=== PATIENT | male | born 1945 | race Caucasian/White ===

== ENCOUNTER → 2017-10-30 02:56 | Outpatient (RCR) | payer MEDICARE, MEDICAID, SELFPAY ==
[2017-10-30] MEDS: Normal Saline Flush 10 ML SYR IVP (09:20)
[2017-10-30 09:40] LABS: Abs Immature Grans 0.01 k/cumm (0.0-0.09); Absolute Basophil Count 0.02 k/cumm (0.0-0.2); Absolute Eosinophil Count 0.14 k/cumm (0.0-0.7); Absolute Lymphocyte Count 1.02 k/cumm (1.2-3.4); Absolute Monocyte Count 0.77 k/cumm (0.11-0.7); Basophils % 0.4; Eosinophils % 2.6; HCT 37.1 % (40.0-50.0); HGB 12.5 g/dL (13.5-17.5); Immature Grans % 0.2; Mean Corp. HGB Concentration 33.7 g/dL (32.0-36.0); Mean Corpuscular Hemoglobin 31.5 pg (27.0-33.0); Mean Corpuscular Volume 93.5 fL (80-95); Mean Platelet Volume 9.7 fL (8.0-11.0); Monocytes % 14.4; Neutrophils % 63.4; Platelet Count 173 x1000/uL (130-400); RBC 3.97 m/cumm (4.50-6.00); RBC Distribution Width 12.5 % (11.8-14.1); White Blood Cell Count 5.36 k/cumm (4.4-10.8)
[2017-10-30 09:53] LABS: ALT 29 U/L (12-78); AST 25 U/L (15-37); Albumin 3.5 g/dL (3.4-5.0); Alkaline Phosphatase 113 U/L (46-116); Anion Gap 5.1 mmol/L (3-11); BUN 15 mg/dL (7-18); Bilirubin, Total 0.5 mg/dL (0.2-1.0); CO2 29.9 mmol/L (21.0-32.0); Calcium 8.7 mg/dL (8.5-10.1); Chloride 99 mmol/L (98-107); Glucose 269 mg/dL (70-100); Potassium 4.1 mmol/L (3.5-5.1); Sodium 134 mmol/L (136-145); Total Protein 7.3 g/dL (6.4-8.2)
== END ==
LOC: INF 02:56
PROVIDERS: PCP Internal Medicine; Visit Provider Internal Medicine Hematology & Oncology
DX: C15.5 Malignant neoplasm of lower third of esophagus (principal); Z45.2 Encounter for adjustment and management of vascular access device
CPT/HCPCS: 36591; 80053; 85025

== ENCOUNTER 2017-11-27 00:39 | Outpatient (RCR) | payer MEDICARE, MEDICAID, SELFPAY ==
[2017-11-04] MEDS: Normal Saline Flush 10 ML SYR IVP (07:05)
[2017-11-04 07:25] LABS: Abs Immature Grans 0.01 k/cumm (0.0-0.09); Absolute Basophil Count 0.02 k/cumm (0.0-0.2); Absolute Eosinophil Count 0.22 k/cumm (0.0-0.7); Absolute Lymphocyte Count 1.03 k/cumm (1.2-3.4); Absolute Monocyte Count 0.75 k/cumm (0.11-0.7); Absolute Neutrophil Count 3.08 k/cumm (1.2-6.7); Basophils % 0.4; Eosinophils % 4.3; HGB 12.5 g/dL (13.5-17.5); Immature Grans % 0.2; Lymphocytes % 20.2; Mean Corp. HGB Concentration 33.8 g/dL (32.0-36.0); Mean Corpuscular Hemoglobin 31.7 pg (27.0-33.0); Mean Corpuscular Volume 93.9 fL (80-95); Mean Platelet Volume 9.9 fL (8.0-11.0); Monocytes % 14.7; Neutrophils % 60.2; Platelet Count 162 x1000/uL (130-400); RBC 3.94 m/cumm (4.50-6.00); RBC Distribution Width 12.4 % (11.8-14.1); White Blood Cell Count 5.11 k/cumm (4.4-10.8)
[2017-11-04 07:43] LABS: ALT 30 U/L (12-78); AST 29 U/L (15-37); Albumin 3.6 g/dL (3.4-5.0); Alkaline Phosphatase 125 U/L (46-116); Anion Gap 3.8 mmol/L (3-11); BUN 17 mg/dL (7-18); Bilirubin, Total 0.5 mg/dL (0.2-1.0); CO2 30.2 mmol/L (21.0-32.0); CREATININE 0.86 mg/dL (0.70-1.30); Calcium 8.8 mg/dL (8.5-10.1); Chloride 99 mmol/L (98-107); Glucose 266 mg/dL (70-100); Sodium 133 mmol/L (136-145); Total Protein 7.6 g/dL (6.4-8.2)
[2017-11-06] MEDS: Heparin 500 UNITS/5 ML SYRINGE IV (08:21)
[2017-11-06] MEDS: Normal Saline Flush 10 ML SYR IVP (08:21)
[2017-11-06 08:39] LABS: Absolute Basophil Count 0.02 k/cumm (0.0-0.2); Absolute Eosinophil Count 0.12 k/cumm (0.0-0.7); Absolute Lymphocyte Count 0.45 k/cumm (1.2-3.4); Absolute Monocyte Count 0.44 k/cumm (0.11-0.7); Absolute Neutrophil Count 4.26 k/cumm (1.2-6.7); Basophils % 0.4; Eosinophils % 2.3; HCT 35.9 % (40.0-50.0); HGB 12.1 g/dL (13.5-17.5); Lymphocytes % 8.5; Mean Corp. HGB Concentration 33.7 g/dL (32.0-36.0); Mean Corpuscular Hemoglobin 31.5 pg (27.0-33.0); Mean Corpuscular Volume 93.5 fL (80-95); Mean Platelet Volume 10.2 fL (8.0-11.0); Monocytes % 8.3; Neutrophils % 80.5; Platelet Count 159 x1000/uL (130-400); RBC 3.84 m/cumm (4.50-6.00); RBC Distribution Width 12.5 % (11.8-14.1); White Blood Cell Count 5.29 k/cumm (4.4-10.8)
[2017-11-06 08:53] LABS: ALT 33 U/L (12-78); AST 32 U/L (15-37); Albumin 3.5 g/dL (3.4-5.0); Alkaline Phosphatase 121 U/L (46-116); Anion Gap 5.7 mmol/L (3-11); BUN 26 mg/dL (7-18); Bilirubin, Total 0.6 mg/dL (0.2-1.0); CO2 28.3 mmol/L (21.0-32.0); CREATININE 1.06 mg/dL (0.70-1.30); Calcium 8.4 mg/dL (8.5-10.1); Chloride 100 mmol/L (98-107); Glucose 312 mg/dL (70-100); Sodium 134 mmol/L (136-145); Total Protein 7.6 g/dL (6.4-8.2)
[2017-11-11] MEDS: Normal Saline Flush 10 ML SYR IVP (12:05)
[2017-11-11 12:39] LABS: Abs Immature Grans 0.02 k/cumm (0.0-0.09); Absolute Basophil Count 0.04 k/cumm (0.0-0.2); Absolute Eosinophil Count 0.14 k/cumm (0.0-0.7); Absolute Lymphocyte Count 0.38 k/cumm (1.2-3.4); Absolute Monocyte Count 0.34 k/cumm (0.11-0.7); Basophils % 1.1; Eosinophils % 3.9; HCT 33.9 % (40.0-50.0); HGB 11.6 g/dL (13.5-17.5); Immature Grans % 0.6; Lymphocytes % 10.5; Mean Corp. HGB Concentration 34.2 g/dL (32.0-36.0); Mean Corpuscular Hemoglobin 32.1 pg (27.0-33.0); Mean Corpuscular Volume 93.9 fL (80-95); Mean Platelet Volume 9.8 fL (8.0-11.0); Monocytes % 9.4; Neutrophils % 74.5; Platelet Count 172 x1000/uL (130-400); RBC 3.61 m/cumm (4.50-6.00); RBC Distribution Width 12.4 % (11.8-14.1); White Blood Cell Count 3.62 k/cumm (4.4-10.8)
[2017-11-11 12:59] LABS: ALT 39 U/L (12-78); AST 40 U/L (15-37); Albumin 3.4 g/dL (3.4-5.0); Alkaline Phosphatase 104 U/L (46-116); BUN 20 mg/dL (7-18); Bilirubin, Total 0.6 mg/dL (0.2-1.0); CREATININE 0.94 mg/dL (0.70-1.30); Calcium 8.4 mg/dL (8.5-10.1); Chloride 100 mmol/L (98-107); Glucose 222 mg/dL (70-100); Potassium 4.3 mmol/L (3.5-5.1); Sodium 134 mmol/L (136-145); Total Protein 7.2 g/dL (6.4-8.2)
[2017-11-13] MEDS: Normal Saline Flush 10 ML SYR IVP (08:10)
[2017-11-13 08:42] LABS: Abs Immature Grans 0.01 k/cumm (0.0-0.09); Absolute Basophil Count 0.01 k/cumm (0.0-0.2); Absolute Eosinophil Count 0.05 k/cumm (0.0-0.7); Absolute Lymphocyte Count 0.15 k/cumm (1.2-3.4); Absolute Monocyte Count 0.26 k/cumm (0.11-0.7); Absolute Neutrophil Count 3.67 k/cumm (1.2-6.7); Basophils % 0.2; Eosinophils % 1.2; HCT 34.4 % (40.0-50.0); HGB 11.6 g/dL (13.5-17.5); Immature Grans % 0.2; Lymphocytes % 3.6; Mean Corp. HGB Concentration 33.7 g/dL (32.0-36.0); Mean Corpuscular Hemoglobin 31.5 pg (27.0-33.0); Mean Corpuscular Volume 93.5 fL (80-95); Mean Platelet Volume 10.2 fL (8.0-11.0); Monocytes % 6.3; Neutrophils % 88.5; Platelet Count 166 x1000/uL (130-400); RBC 3.68 m/cumm (4.50-6.00); RBC Distribution Width 12.3 % (11.8-14.1); White Blood Cell Count 4.15 k/cumm (4.4-10.8)
[2017-11-13 08:58] LABS: ALT 38 U/L (12-78); AST 29 U/L (15-37); Albumin 3.6 g/dL (3.4-5.0); Alkaline Phosphatase 122 U/L (46-116); BUN 21 mg/dL (7-18); Bilirubin, Total 0.4 mg/dL (0.2-1.0); CREATININE 0.91 mg/dL (0.70-1.30); Calcium 8.8 mg/dL (8.5-10.1); Chloride 100 mmol/L (98-107); Glucose 353 mg/dL (70-100); Potassium 4.3 mmol/L (3.5-5.1); Sodium 137 mmol/L (136-145); Total Protein 7.6 g/dL (6.4-8.2)
[2017-11-20] MEDS: Normal Saline Flush 10 ML SYR IVP (08:05)
[2017-11-20 08:33] LABS: Abs Immature Grans 0.01 k/cumm (0.0-0.09); Absolute Basophil Count 0.01 k/cumm (0.0-0.2); Absolute Eosinophil Count 0.01 k/cumm (0.0-0.7); Absolute Lymphocyte Count 0.07 k/cumm (1.2-3.4); Absolute Monocyte Count 0.28 k/cumm (0.11-0.7); Absolute Neutrophil Count 2.92 k/cumm (1.2-6.7); Basophils % 0.3; Eosinophils % 0.3; HCT 33.9 % (40.0-50.0); HGB 11.5 g/dL (13.5-17.5); Immature Grans % 0.3; Lymphocytes % 2.1; Mean Corp. HGB Concentration 33.9 g/dL (32.0-36.0); Mean Corpuscular Hemoglobin 31.6 pg (27.0-33.0); Mean Corpuscular Volume 93.1 fL (80-95); Mean Platelet Volume 9.6 fL (8.0-11.0); Monocytes % 8.5; Neutrophils % 88.5; Platelet Count 153 x1000/uL (130-400); RBC 3.64 m/cumm (4.50-6.00); RBC Distribution Width 12.4 % (11.8-14.1)
[2017-11-20 08:44] LABS: ALT 41 U/L (12-78); AST 39 U/L (15-37); Albumin 3.5 g/dL (3.4-5.0); Alkaline Phosphatase 105 U/L (46-116); Anion Gap 6.7 mmol/L (3-11); BUN 19 mg/dL (7-18); Bilirubin, Total 0.4 mg/dL (0.2-1.0); CO2 27.3 mmol/L (21.0-32.0); CREATININE 0.86 mg/dL (0.70-1.30); Calcium 8.4 mg/dL (8.5-10.1); Chloride 100 mmol/L (98-107); Glucose 137 mg/dL (70-100); Sodium 134 mmol/L (136-145); Total Protein 7.1 g/dL (6.4-8.2)
[2017-11-27] MEDS: Normal Saline Flush 10 ML SYR IVP (08:20)
[2017-11-27 08:41] LABS: Abs Immature Grans 0.01 k/cumm (0.0-0.09); Absolute Basophil Count 0.02 k/cumm (0.0-0.2); Absolute Eosinophil Count 0.02 k/cumm (0.0-0.7); Absolute Lymphocyte Count 0.04 k/cumm (1.2-3.4); Absolute Monocyte Count 0.24 k/cumm (0.11-0.7); Absolute Neutrophil Count 1.66 k/cumm (1.2-6.7); HCT 31.8 % (40.0-50.0); HGB 10.6 g/dL (13.5-17.5); Immature Grans % 0.5; Mean Corp. HGB Concentration 33.3 g/dL (32.0-36.0); Mean Corpuscular Hemoglobin 31.3 pg (27.0-33.0); Mean Corpuscular Volume 93.8 fL (80-95); Mean Platelet Volume 9.5 fL (8.0-11.0); Monocytes % 12.1; Neutrophils % 83.4; Platelet Count 116 x1000/uL (130-400); RBC 3.39 m/cumm (4.50-6.00); RBC Distribution Width 12.6 % (11.8-14.1)
[2017-11-27 08:53] LABS: ALT 36 U/L (12-78); AST 32 U/L (15-37); Albumin 3.3 g/dL (3.4-5.0); Alkaline Phosphatase 108 U/L (46-116); Anion Gap 6.3 mmol/L (3-11); BUN 14 mg/dL (7-18); Bilirubin, Total 0.3 mg/dL (0.2-1.0); CO2 29.7 mmol/L (21.0-32.0); CREATININE 0.74 mg/dL (0.70-1.30); Calcium 8.3 mg/dL (8.5-10.1); Chloride 100 mmol/L (98-107); Glucose 162 mg/dL (70-100); Potassium 4.3 mmol/L (3.5-5.1); Sodium 136 mmol/L (136-145); Total Protein 6.7 g/dL (6.4-8.2)
[2017-11-27 09:16] LABS: White Blood Cell Count 1.99 k/cumm (4.4-10.8)
[2017-11-27 09:17] LABS: Diff Comment Diff Reviewed
== END 2017-11-29 23:59 | disposition home or self-care (01) ==
LOC: INF 00:39
PROVIDERS: PCP Internal Medicine; Visit Provider Internal Medicine Hematology & Oncology
DX: C15.5 Malignant neoplasm of lower third of esophagus (principal); Z45.2 Encounter for adjustment and management of vascular access device
CPT/HCPCS: 36591; 80053; 85025

== ENCOUNTER 2017-12-07 00:52 | Outpatient (RCR) | payer MEDICARE, MEDICAID, SELFPAY ==
[2017-12-02] MEDS: Normal Saline Flush 10 ML SYR IVP (10:05)
[2017-12-02 10:18] LABS: Absolute Basophil Count 0.01 k/cumm (0.0-0.2); Absolute Eosinophil Count 0.02 k/cumm (0.0-0.7); Absolute Lymphocyte Count 0.07 k/cumm (1.2-3.4); Absolute Monocyte Count 0.35 k/cumm (0.11-0.7); Absolute Neutrophil Count 1.34 k/cumm (1.2-6.7); Basophils % 0.6; Eosinophils % 1.1; HCT 32.4 % (40.0-50.0); HGB 10.9 g/dL (13.5-17.5); Lymphocytes % 3.9; Mean Corp. HGB Concentration 33.6 g/dL (32.0-36.0); Mean Corpuscular Hemoglobin 30.7 pg (27.0-33.0); Mean Corpuscular Volume 91.3 fL (80-95); Mean Platelet Volume 9.7 fL (8.0-11.0); Monocytes % 19.6; Neutrophils % 74.8; RBC 3.55 m/cumm (4.50-6.00); RBC Distribution Width 12.5 % (11.8-14.1)
[2017-12-02 10:30] LABS: ALT 50 U/L (12-78); AST 57 U/L (15-37); Albumin 3.4 g/dL (3.4-5.0); Alkaline Phosphatase 100 U/L (46-116); Anion Gap 7.4 mmol/L (3-11); BUN 18 mg/dL (7-18); Bilirubin, Total 0.7 mg/dL (0.2-1.0); CO2 28.6 mmol/L (21.0-32.0); CREATININE 0.96 mg/dL (0.70-1.30); Calcium 8.8 mg/dL (8.5-10.1); Chloride 97 mmol/L (98-107); Glucose 207 mg/dL (70-100); Potassium 4.3 mmol/L (3.5-5.1); Sodium 133 mmol/L (136-145); Total Protein 7.2 g/dL (6.4-8.2)
[2017-12-02 10:37] LABS: White Blood Cell Count 1.79 k/cumm (4.4-10.8)
[2017-12-02 10:56] LABS: Platelet Count 106 x1000/uL (130-400)
[2017-12-02 10:57] LABS: Anisocytosis 1+; Diff Comment Diff Reviewed
[2017-12-04] MEDS: Normal Saline Flush 10 ML SYR IVP (08:20)
[2017-12-04 08:40] LABS: Abs Immature Grans 0.01 k/cumm (0.0-0.09); Absolute Basophil Count 0.01 k/cumm (0.0-0.2); Absolute Eosinophil Count 0.01 k/cumm (0.0-0.7); Absolute Lymphocyte Count 0.09 k/cumm (1.2-3.4); Absolute Monocyte Count 0.48 k/cumm (0.11-0.7); Absolute Neutrophil Count 1.59 k/cumm (1.2-6.7); Basophils % 0.5; Eosinophils % 0.5; HCT 30.5 % (40.0-50.0); HGB 10.4 g/dL (13.5-17.5); Immature Grans % 0.5; Lymphocytes % 4.1; Mean Corp. HGB Concentration 34.1 g/dL (32.0-36.0); Mean Corpuscular Hemoglobin 31.5 pg (27.0-33.0); Mean Corpuscular Volume 92.4 fL (80-95); Mean Platelet Volume 9.3 fL (8.0-11.0); Monocytes % 21.9; Neutrophils % 72.5; Platelet Count 107 x1000/uL (130-400); RBC Distribution Width 12.8 % (11.8-14.1); White Blood Cell Count 2.19 k/cumm (4.4-10.8)
[2017-12-04 08:52] LABS: ALT 40 U/L (12-78); AST 31 U/L (15-37); Albumin 3.3 g/dL (3.4-5.0); Alkaline Phosphatase 107 U/L (46-116); Anion Gap 7.1 mmol/L (3-11); BUN 14 mg/dL (7-18); Bilirubin, Total 0.4 mg/dL (0.2-1.0); CO2 29.9 mmol/L (21.0-32.0); CREATININE 0.78 mg/dL (0.70-1.30); Calcium 8.7 mg/dL (8.5-10.1); Chloride 100 mmol/L (98-107); Glucose 144 mg/dL (70-100); Potassium 3.8 mmol/L (3.5-5.1); Sodium 137 mmol/L (136-145)
[2017-12-07] MEDS: Normal Saline Flush 10 ML SYR IVP (08:30)
[2017-12-07 08:51] LABS: Abs Immature Grans 0.01 k/cumm (0.0-0.09); Absolute Basophil Count 0.01 k/cumm (0.0-0.2); Absolute Eosinophil Count 0.02 k/cumm (0.0-0.7); Absolute Lymphocyte Count 0.23 k/cumm (1.2-3.4); Absolute Monocyte Count 0.67 k/cumm (0.11-0.7); Absolute Neutrophil Count 1.45 k/cumm (1.2-6.7); Basophils % 0.4; Eosinophils % 0.8; HCT 31.7 % (40.0-50.0); HGB 10.9 g/dL (13.5-17.5); Immature Grans % 0.4; Lymphocytes % 9.6; Mean Corp. HGB Concentration 34.4 g/dL (32.0-36.0); Mean Corpuscular Hemoglobin 31.7 pg (27.0-33.0); Mean Corpuscular Volume 92.2 fL (80-95); Mean Platelet Volume 9.2 fL (8.0-11.0); Neutrophils % 60.8; Platelet Count 119 x1000/uL (130-400); RBC 3.44 m/cumm (4.50-6.00); RBC Distribution Width 13.3 % (11.8-14.1); White Blood Cell Count 2.39 k/cumm (4.4-10.8)
[2017-12-07 09:04] LABS: ALT 34 U/L (12-78); AST 32 U/L (15-37); Albumin 3.2 g/dL (3.4-5.0); Alkaline Phosphatase 104 U/L (46-116); Anion Gap 9.9 mmol/L (3-11); BUN 11 mg/dL (7-18); Bilirubin, Total 0.5 mg/dL (0.2-1.0); CO2 28.1 mmol/L (21.0-32.0); CREATININE 0.82 mg/dL (0.70-1.30); Calcium 8.7 mg/dL (8.5-10.1); Chloride 96 mmol/L (98-107); Glucose 148 mg/dL (70-100); Potassium 3.7 mmol/L (3.5-5.1); Sodium 134 mmol/L (136-145)
[2017-12-07 09:16] LABS: Diff Comment Manual Differential; RBC Morphology Normal
== END 2017-12-30 23:59 | disposition home or self-care (01) ==
LOC: INF 00:52
PROVIDERS: PCP Internal Medicine; Visit Provider Internal Medicine Hematology & Oncology
DX: C15.5 Malignant neoplasm of lower third of esophagus (principal); Z45.2 Encounter for adjustment and management of vascular access device
CPT/HCPCS: 36591; 80053; 85025

== ENCOUNTER 2018-01-08 07:51 | Outpatient (RCR) | payer MEDICARE, MEDICAID, SELFPAY ==
[2018-01-08] MEDS: Normal Saline Flush 10 ML SYR IVP (08:20)
[2018-01-08] MEDS: Heparin 500 UNITS/5 ML SYRINGE IV (08:20)
[2018-01-08 08:41] LABS: Abs Immature Grans 0.01 k/cumm (0.0-0.09); Absolute Basophil Count 0.06 k/cumm (0.0-0.2); Absolute Eosinophil Count 0.42 k/cumm (0.0-0.7); Absolute Lymphocyte Count 1.04 k/cumm (1.2-3.4); Absolute Monocyte Count 1.01 k/cumm (0.11-0.7); Basophils % 1.4; Eosinophils % 9.7; HCT 32.9 % (40.0-50.0); HGB 10.8 g/dL (13.5-17.5); Immature Grans % 0.2; Lymphocytes % 24.1; Mean Corp. HGB Concentration 32.8 g/dL (32.0-36.0); Mean Corpuscular Volume 97.6 fL (80-95); Mean Platelet Volume 9.4 fL (8.0-11.0); Monocytes % 23.4; Neutrophils % 41.2; Platelet Count 166 x1000/uL (130-400); RBC 3.37 m/cumm (4.50-6.00); RBC Distribution Width 15.7 % (11.8-14.1); White Blood Cell Count 4.31 k/cumm (4.4-10.8)
[2018-01-08 08:48] LABS: Absolute Neutrophil Count 1.78 k/cumm (1.2-6.7)
[2018-01-08 09:02] LABS: ALT 24 U/L (12-78); AST 39 U/L (15-37); Albumin 3.1 g/dL (3.4-5.0); Alkaline Phosphatase 118 U/L (46-116); Anion Gap 7.7 mmol/L (3-11); BUN 14 mg/dL (7-18); Bilirubin, Total 0.5 mg/dL (0.2-1.0); CO2 29.3 mmol/L (21.0-32.0); CREATININE 0.89 mg/dL (0.70-1.30); Calcium 8.8 mg/dL (8.5-10.1); Chloride 97 mmol/L (98-107); Glucose 199 mg/dL (70-100); Potassium 4.1 mmol/L (3.5-5.1); Sodium 134 mmol/L (136-145); Total Protein 7.4 g/dL (6.4-8.2)
== END 2018-01-29 23:59 | disposition home or self-care (01) ==
LOC: INF 07:51
PROVIDERS: PCP Internal Medicine; Visit Provider Internal Medicine Hematology & Oncology
DX: C15.5 Malignant neoplasm of lower third of esophagus (principal); Z45.2 Encounter for adjustment and management of vascular access device
CPT/HCPCS: 36591; 80053; 85025

== ENCOUNTER 2018-03-09 01:48 | Outpatient (RCR) | payer MEDICARE, MEDICAID, SELFPAY ==
[2018-03-09] MEDS: Normal Saline Flush 10 ML SYR IVP (12:23)
[2018-03-09] MEDS: Heparin 500 UNITS/5 ML SYRINGE IV (12:23)
[2018-03-09 12:35] LABS: Abs Immature Grans 0.02 k/cumm (0.0-0.09); Absolute Basophil Count 0.02 k/cumm (0.0-0.2); Absolute Eosinophil Count 0.11 k/cumm (0.0-0.7); Absolute Lymphocyte Count 0.84 k/cumm (1.2-3.4); Absolute Monocyte Count 0.87 k/cumm (0.11-0.7); Absolute Neutrophil Count 2.64 k/cumm (1.2-6.7); Basophils % 0.4; Eosinophils % 2.4; HCT 40.4 % (40.0-50.0); HGB 13.3 g/dL (13.5-17.5); Immature Grans % 0.4; Lymphocytes % 18.7; Mean Corp. HGB Concentration 32.9 g/dL (32.0-36.0); Mean Corpuscular Hemoglobin 31.8 pg (27.0-33.0); Mean Corpuscular Volume 96.7 fL (80-95); Mean Platelet Volume 9.8 fL (8.0-11.0); Monocytes % 19.3; Neutrophils % 58.8; Platelet Count 169 x1000/uL (130-400); RBC 4.18 m/cumm (4.50-6.00); RBC Distribution Width 12.2 % (11.8-14.1)
[2018-03-09 13:11] LABS: ALT 30 U/L (12-78); AST 28 U/L (15-37); Albumin 3.6 g/dL (3.4-5.0); Alkaline Phosphatase 177 U/L (46-116); Anion Gap 5.8 mmol/L (3-11); BUN 19 mg/dL (7-18); Bilirubin, Total 0.3 mg/dL (0.2-1.0); CO2 30.2 mmol/L (21.0-32.0); CREATININE 1.12 mg/dL (0.70-1.30); Calcium 9.3 mg/dL (8.5-10.1); Chloride 98 mmol/L (98-107); Glucose 334 mg/dL (70-100); Potassium 4.4 mmol/L (3.5-5.1); Sodium 134 mmol/L (136-145); Total Protein 8.3 g/dL (6.4-8.2)
[2018-03-10 10:57] LABS: CEA 18.6 ng/ml
== END 2018-04-01 23:59 | disposition home or self-care (01) ==
LOC: INF 01:48
PROVIDERS: PCP Internal Medicine; Visit Provider Internal Medicine Hematology & Oncology
DX: C15.5 Malignant neoplasm of lower third of esophagus (principal); Z45.2 Encounter for adjustment and management of vascular access device
CPT/HCPCS: 36591; 80053; 82378; 85025

== ENCOUNTER 2018-06-11 01:06 | Outpatient (RCR) | payer MEDICARE, MEDICAID, SELFPAY | END 2018-06-29 23:59 | disposition home or self-care (01) | LOC: INF 01:06 | PROVIDERS: PCP Internal Medicine; Visit Provider Internal Medicine Hematology & Oncology | DX: R69 Illness, unspecified (principal) ==

== ENCOUNTER 2018-07-30 01:43 | Outpatient (RCR) | payer MEDICARE, MEDICAID, SELFPAY ==
[2018-07-16 09:50] LABS: Abs Immature Grans 0.01 k/cumm (0.0-0.09); Absolute Basophil Count 0.02 k/cumm (0.0-0.2); Absolute Eosinophil Count 0.13 k/cumm (0.0-0.7); Absolute Lymphocyte Count 0.85 k/cumm (1.2-3.4); Absolute Monocyte Count 0.69 k/cumm (0.11-0.7); Absolute Neutrophil Count 2.17 k/cumm (1.2-6.7); Basophils % 0.5; Eosinophils % 3.4; HCT 37.1 % (40.0-50.0); HGB 12.3 g/dL (13.5-17.5); Immature Grans % 0.3; Mean Corp. HGB Concentration 33.2 g/dL (32.0-36.0); Mean Corpuscular Hemoglobin 31.3 pg (27.0-33.0); Mean Corpuscular Volume 94.4 fL (80-95); Mean Platelet Volume 9.5 fL (8.0-11.0); Monocytes % 17.8; Platelet Count 179 x1000/uL (130-400); RBC 3.93 m/cumm (4.50-6.00); RBC Distribution Width 13.5 % (11.8-14.1); White Blood Cell Count 3.87 k/cumm (4.4-10.8)
[2018-07-16 10:02] LABS: ALT 38 U/L (12-78); AST 44 U/L (15-37); Albumin 3.4 g/dL (3.4-5.0); Alkaline Phosphatase 246 U/L (46-116); Anion Gap 8.8 mmol/L (3-11); BUN 14 mg/dL (7-18); Bilirubin, Total 0.4 mg/dL (0.2-1.0); CO2 28.2 mmol/L (21.0-32.0); CREATININE 0.92 mg/dL (0.70-1.30); Calcium 8.8 mg/dL (8.5-10.1); Chloride 97 mmol/L (98-107); Glucose 244 mg/dL (70-100); LDH 149 U/L (85-227); Potassium 4.1 mmol/L (3.5-5.1); Sodium 134 mmol/L (136-145); Total Protein 8.1 g/dL (6.4-8.2)
[2018-07-16] MEDS: Heparin 500 UNITS/5 ML SYRINGE IV (10:06)
[2018-07-16] MEDS: Normal Saline Flush 10 ML SYR IVP (10:06)
[2018-07-19 10:19] LABS: CEA 643.2 ng/ml
== END 2018-07-30 23:59 | disposition home or self-care (01) ==
LOC: INF 01:43
PROVIDERS: PCP Internal Medicine; Visit Provider Internal Medicine Hematology & Oncology
DX: C15.5 Malignant neoplasm of lower third of esophagus (principal); Z45.2 Encounter for adjustment and management of vascular access device
CPT/HCPCS: 36591; 80053; 82378; 83615; 85025

== ENCOUNTER 2018-08-17 09:30 | Outpatient (RCR) | payer MEDICARE, MEDICAID, SELFPAY ==
[2018-08-03] MEDS: Normal Saline Flush 10 ML SYR IVP (09:50)
[2018-08-03 10:14] LABS: Absolute Basophil Count 0.01 k/cumm (0.0-0.2); Absolute Lymphocyte Count 0.79 k/cumm (1.2-3.4); Absolute Monocyte Count 0.61 k/cumm (0.11-0.7); Basophils % 0.3; Eosinophils % 3.2; HGB 11.8 g/dL (13.5-17.5); Lymphocytes % 25.4; Mean Corp. HGB Concentration 33.7 g/dL (32.0-36.0); Mean Corpuscular Hemoglobin 31.6 pg (27.0-33.0); Mean Corpuscular Volume 93.8 fL (80-95); Mean Platelet Volume 9.6 fL (8.0-11.0); Monocytes % 19.6; Neutrophils % 51.5; Platelet Count 123 x1000/uL (130-400); RBC 3.73 m/cumm (4.50-6.00); RBC Distribution Width 13.5 % (11.8-14.1); White Blood Cell Count 3.11 k/cumm (4.4-10.8)
[2018-08-03 10:27] LABS: ALT 36 U/L (12-78); AST 31 U/L (15-37); Albumin 3.2 g/dL (3.4-5.0); Alkaline Phosphatase 276 U/L (46-116); BUN 17 mg/dL (7-18); Bilirubin, Total 0.4 mg/dL (0.2-1.0); CREATININE 0.97 mg/dL (0.70-1.30); Calcium 8.8 mg/dL (8.5-10.1); Chloride 99 mmol/L (98-107); Glucose 228 mg/dL (70-100); Potassium 4.2 mmol/L (3.5-5.1); Sodium 136 mmol/L (136-145); Total Protein 7.4 g/dL (6.4-8.2)
[2018-08-17] MEDS: Normal Saline Flush 10 ML SYR IVP (09:53)
[2018-08-17 10:07] LABS: Absolute Basophil Count 0.01 k/cumm (0.0-0.2); Absolute Eosinophil Count 0.05 k/cumm (0.0-0.7); Absolute Monocyte Count 0.72 k/cumm (0.11-0.7); Absolute Neutrophil Count 1.44 k/cumm (1.2-6.7); Basophils % 0.3; Eosinophils % 1.7; HCT 35.4 % (40.0-50.0); Lymphocytes % 26.5; Mean Corp. HGB Concentration 33.9 g/dL (32.0-36.0); Mean Corpuscular Hemoglobin 31.4 pg (27.0-33.0); Mean Corpuscular Volume 92.7 fL (80-95); Mean Platelet Volume 9.8 fL (8.0-11.0); Monocytes % 23.8; Neutrophils % 47.7; Platelet Count 113 x1000/uL (130-400); RBC 3.82 m/cumm (4.50-6.00); RBC Distribution Width 14.2 % (11.8-14.1); White Blood Cell Count 3.02 k/cumm (4.4-10.8)
[2018-08-17 10:21] LABS: ALT 36 U/L (12-78); AST 40 U/L (15-37); Albumin 3.3 g/dL (3.4-5.0); Alkaline Phosphatase 243 U/L (46-116); Anion Gap 12.4 mmol/L (3-11); BUN 18 mg/dL (7-18); Bilirubin, Total 0.4 mg/dL (0.2-1.0); CO2 25.6 mmol/L (21.0-32.0); CREATININE 1.07 mg/dL (0.70-1.30); Chloride 97 mmol/L (98-107); Glucose 197 mg/dL (70-100); Potassium 4.7 mmol/L (3.5-5.1); Sodium 135 mmol/L (136-145); Total Protein 7.7 g/dL (6.4-8.2)
[2018-08-17 11:01] LABS: LDH 166 U/L (85-227)
[2018-08-18 08:48] LABS: CEA 514.6 ng/ml
== END 2018-08-29 23:59 | disposition home or self-care (01) ==
LOC: INF 09:30
PROVIDERS: Registered Nurse Oncology; PCP Internal Medicine; Visit Provider Internal Medicine Hematology & Oncology
DX: C15.5 Malignant neoplasm of lower third of esophagus (principal); Z45.2 Encounter for adjustment and management of vascular access device
CPT/HCPCS: 36591; 80053; 82378; 83615; 85025

== ENCOUNTER 2018-09-20 01:18 | Outpatient (RCR) | payer MEDICARE, MEDICAID, SELFPAY ==
[2018-08-30 11:00] LABS: Abs Immature Grans 0.01 k/cumm (0.0-0.09); Absolute Basophil Count 0.02 k/cumm (0.0-0.2); Absolute Eosinophil Count 0.07 k/cumm (0.0-0.7); Absolute Lymphocyte Count 0.84 k/cumm (1.2-3.4); Absolute Monocyte Count 0.74 k/cumm (0.11-0.7); Absolute Neutrophil Count 1.11 k/cumm (1.2-6.7); Basophils % 0.7; Eosinophils % 2.5; HCT 34.8 % (40.0-50.0); HGB 11.7 g/dL (13.5-17.5); Immature Grans % 0.4; Lymphocytes % 30.1; Mean Corp. HGB Concentration 33.6 g/dL (32.0-36.0); Mean Corpuscular Hemoglobin 31.9 pg (27.0-33.0); Mean Corpuscular Volume 94.8 fL (80-95); Mean Platelet Volume 9.8 fL (8.0-11.0); Monocytes % 26.5; Neutrophils % 39.8; Platelet Count 103 x1000/uL (130-400); RBC 3.67 m/cumm (4.50-6.00); RBC Distribution Width 15.4 % (11.8-14.1); White Blood Cell Count 2.79 k/cumm (4.4-10.8)
[2018-08-30] MEDS: Normal Saline Flush 10 ML SYR IVP (11:03)
[2018-08-30 11:19] LABS: ALT 30 U/L (12-78); AST 29 U/L (15-37); Albumin 3.2 g/dL (3.4-5.0); Alkaline Phosphatase 214 U/L (46-116); Anion Gap 8.9 mmol/L (3-11); BUN 18 mg/dL (7-18); Bilirubin, Total 0.4 mg/dL (0.2-1.0); CO2 28.1 mmol/L (21.0-32.0); CREATININE 1.11 mg/dL (0.70-1.30); Chloride 103 mmol/L (98-107); Glucose 261 mg/dL (70-100); Potassium 4.4 mmol/L (3.5-5.1); Sodium 140 mmol/L (136-145); Total Protein 7.6 g/dL (6.4-8.2)
[2018-08-30 11:22] LABS: Anisocytosis 1+; Diff Comment Diff Reviewed; Polychromasia Present
[2018-08-31 09:38] LABS: CEA 308.9 ng/ml
[2018-09-06] MEDS: Normal Saline Flush 10 ML SYR IVP (10:36)
[2018-09-06 10:51] LABS: Abs Immature Grans 0.02 k/cumm (0.0-0.09); Absolute Basophil Count 0.02 k/cumm (0.0-0.2); Absolute Eosinophil Count 0.08 k/cumm (0.0-0.7); Absolute Lymphocyte Count 0.72 k/cumm (1.2-3.4); Absolute Monocyte Count 0.92 k/cumm (0.11-0.7); Absolute Neutrophil Count 1.56 k/cumm (1.2-6.7); Basophils % 0.6; Eosinophils % 2.4; HCT 33.8 % (40.0-50.0); HGB 11.5 g/dL (13.5-17.5); Immature Grans % 0.6; Lymphocytes % 21.7; Mean Corpuscular Hemoglobin 32.7 pg (27.0-33.0); Mean Platelet Volume 9.9 fL (8.0-11.0); Monocytes % 27.7; Platelet Count 172 x1000/uL (130-400); RBC 3.52 m/cumm (4.50-6.00); RBC Distribution Width 16.7 % (11.8-14.1); White Blood Cell Count 3.32 k/cumm (4.4-10.8)
[2018-09-06 11:03] LABS: ALT 23 U/L (12-78); AST 31 U/L (15-37); Albumin 3.2 g/dL (3.4-5.0); Alkaline Phosphatase 209 U/L (46-116); Anion Gap 9.7 mmol/L (3-11); BUN 17 mg/dL (7-18); Bilirubin, Total 0.5 mg/dL (0.2-1.0); CO2 27.3 mmol/L (21.0-32.0); CREATININE 0.97 mg/dL (0.70-1.30); Calcium 8.9 mg/dL (8.5-10.1); Chloride 100 mmol/L (98-107); Glucose 184 mg/dL (70-100); Potassium 3.8 mmol/L (3.5-5.1); Sodium 137 mmol/L (136-145); Total Protein 7.7 g/dL (6.4-8.2)
[2018-09-20] MEDS: Heparin 500 UNITS/5 ML SYRINGE IV (10:20)
[2018-09-20] MEDS: Normal Saline Flush 10 ML SYR IVP (10:20)
[2018-09-20 10:26] LABS: HCT 33.3 % (40.0-50.0); HGB 11.3 g/dL (13.5-17.5); Mean Corp. HGB Concentration 33.9 g/dL (32.0-36.0); Mean Corpuscular Volume 97.4 fL (80-95); Mean Platelet Volume 9.9 fL (8.0-11.0); Platelet Count 104 x1000/uL (130-400); RBC 3.42 m/cumm (4.50-6.00); White Blood Cell Count 3.23 k/cumm (4.4-10.8)
[2018-09-20 10:41] LABS: ALT 30 U/L (12-78); AST 30 U/L (15-37); Albumin 2.9 g/dL (3.4-5.0); Alkaline Phosphatase 212 U/L (46-116); Anion Gap 7.4 mmol/L (3-11); BUN 13 mg/dL (7-18); Bilirubin, Total 0.4 mg/dL (0.2-1.0); CO2 28.6 mmol/L (21.0-32.0); CREATININE 0.78 mg/dL (0.70-1.30); Calcium 8.9 mg/dL (8.5-10.1); Chloride 101 mmol/L (98-107); Glucose 202 mg/dL (70-100); Sodium 137 mmol/L (136-145); Total Protein 7.3 g/dL (6.4-8.2)
[2018-09-20 11:07] LABS: Absolute Neutrophil Count 1.55 k/cumm (1.2-6.7)
[2018-09-20 11:09] LABS: Absolute Lymphocyte Count 0.78 k/cumm (1.2-3.4); Absolute Monocyte Count 0.84 k/cumm (0.11-0.7); Atypical Lymphocytes % 1
[2018-09-20 11:10] LABS: Absolute Eosinophil Count 0.06 k/cumm (0.0-0.7)
[2018-09-20 11:11] LABS: Anisocytosis 1+; Diff Comment Manual Differential; Polychromasia Present
[2018-09-21 09:35] LABS: CEA 74.1 ng/ml
== END 2018-09-29 23:59 | disposition home or self-care (01) ==
LOC: INF 01:18
PROVIDERS: PCP Internal Medicine; Visit Provider Internal Medicine Hematology & Oncology
DX: C15.9 Malignant neoplasm of esophagus, unspecified (principal); Z45.2 Encounter for adjustment and management of vascular access device
CPT/HCPCS: 36591; 80053; 82378; 85025

== ENCOUNTER 2018-10-18 01:38 | Outpatient (RCR) | payer MEDICARE, MEDICAID, SELFPAY ==
[2018-10-18] MEDS: Normal Saline Flush 10 ML SYR IVP (09:40)
[2018-10-18 10:03] LABS: Abs Immature Grans 0.01 k/cumm (0.0-0.09); Absolute Basophil Count 0.01 k/cumm (0.0-0.2); Absolute Eosinophil Count 0.08 k/cumm (0.0-0.7); Absolute Lymphocyte Count 0.87 k/cumm (1.2-3.4); Absolute Monocyte Count 1.01 k/cumm (0.11-0.7); Absolute Neutrophil Count 3.68 k/cumm (1.2-6.7); Basophils % 0.2; Eosinophils % 1.4; HCT 32.2 % (40.0-50.0); HGB 10.7 g/dL (13.5-17.5); Immature Grans % 0.2; Lymphocytes % 15.4; Mean Corp. HGB Concentration 33.2 g/dL (32.0-36.0); Mean Corpuscular Hemoglobin 33.5 pg (27.0-33.0); Mean Corpuscular Volume 100.9 fL (80-95); Mean Platelet Volume 9.5 fL (8.0-11.0); Monocytes % 17.8; Platelet Count 168 x1000/uL (130-400); RBC 3.19 m/cumm (4.50-6.00); White Blood Cell Count 5.66 k/cumm (4.4-10.8)
[2018-10-18 10:13] LABS: ALT 20 U/L (12-78); AST 21 U/L (15-37); Alkaline Phosphatase 164 U/L (46-116); Anion Gap 8.4 mmol/L (3-11); BUN 17 mg/dL (7-18); Bilirubin, Total 0.7 mg/dL (0.2-1.0); CO2 28.6 mmol/L (21.0-32.0); CREATININE 0.83 mg/dL (0.70-1.30); Calcium 8.6 mg/dL (8.5-10.1); Chloride 101 mmol/L (98-107); Glucose 193 mg/dL (70-100); Potassium 3.6 mmol/L (3.5-5.1); Sodium 138 mmol/L (136-145); Total Protein 7.7 g/dL (6.4-8.2)
[2018-10-19 09:20] LABS: CEA 38.9 ng/ml
== END 2018-10-30 23:59 | disposition home or self-care (01) ==
LOC: INF 01:38
PROVIDERS: PCP Internal Medicine; Visit Provider Internal Medicine Hematology & Oncology
DX: C15.9 Malignant neoplasm of esophagus, unspecified (principal); Z45.2 Encounter for adjustment and management of vascular access device
CPT/HCPCS: 36591; 80053; 82378; 85025

== ENCOUNTER 2018-11-29 01:41 | Outpatient (RCR) | payer MEDICARE, MEDICAID, SELFPAY ==
[2018-11-02] MEDS: Normal Saline Flush 10 ML SYR IVP (09:32)
[2018-11-02 09:47] LABS: Absolute Basophil Count 0.02 k/cumm (0.0-0.2); Absolute Eosinophil Count 0.08 k/cumm (0.0-0.7); Absolute Lymphocyte Count 0.72 k/cumm (1.2-3.4); Absolute Monocyte Count 0.86 k/cumm (0.11-0.7); Absolute Neutrophil Count 1.52 k/cumm (1.2-6.7); Basophils % 0.6; Eosinophils % 2.5; HCT 32.5 % (40.0-50.0); HGB 10.7 g/dL (13.5-17.5); Lymphocytes % 22.5; Mean Corp. HGB Concentration 32.9 g/dL (32.0-36.0); Mean Corpuscular Hemoglobin 32.9 pg (27.0-33.0); Mean Platelet Volume 9.8 fL (8.0-11.0); Monocytes % 26.9; Neutrophils % 47.5; Platelet Count 148 x1000/uL (130-400); RBC 3.25 m/cumm (4.50-6.00); RBC Distribution Width 14.1 % (11.8-14.1)
[2018-11-02 10:11] LABS: ALT 21 U/L (16-63); AST 25 U/L (15-37); Albumin 2.9 g/dL (3.4-5.0); Alkaline Phosphatase 193 U/L (46-116); BUN 12 mg/dL (7-18); Bilirubin, Total 0.4 mg/dL (0.2-1.0); CREATININE 0.83 mg/dL (0.70-1.30); Calcium 8.8 mg/dL (8.5-10.1); Chloride 100 mmol/L (98-107); Glucose 240 mg/dL (70-100); Potassium 3.8 mmol/L (3.5-5.1); Sodium 136 mmol/L (136-145); Total Protein 7.6 g/dL (6.4-8.2)
[2018-11-29] MEDS: Normal Saline Flush 10 ML SYR IVP (08:21)
[2018-11-29 08:40] LABS: Abs Immature Grans 0.01 k/cumm (0.0-0.09); Absolute Basophil Count 0.03 k/cumm (0.0-0.2); Absolute Eosinophil Count 0.07 k/cumm (0.0-0.7); Absolute Lymphocyte Count 0.69 k/cumm (1.2-3.4); Absolute Monocyte Count 0.95 k/cumm (0.11-0.7); Basophils % 0.6; Eosinophils % 1.5; HCT 33.1 % (40.0-50.0); HGB 10.9 g/dL (13.5-17.5); Immature Grans % 0.2; Lymphocytes % 14.8; Mean Corp. HGB Concentration 32.9 g/dL (32.0-36.0); Mean Corpuscular Hemoglobin 33.2 pg (27.0-33.0); Mean Corpuscular Volume 100.9 fL (80-95); Monocytes % 20.4; Neutrophils % 62.5; Platelet Count 172 x1000/uL (130-400); RBC 3.28 m/cumm (4.50-6.00); RBC Distribution Width 14.1 % (11.8-14.1); White Blood Cell Count 4.65 k/cumm (4.4-10.8)
[2018-11-29 08:58] LABS: ALT 27 U/L (16-63); AST 35 U/L (15-37); Alkaline Phosphatase 208 U/L (46-116); Anion Gap 6.8 mmol/L (3-11); BUN 13 mg/dL (7-18); Bilirubin, Total 0.4 mg/dL (0.2-1.0); CO2 29.2 mmol/L (21.0-32.0); Calcium 8.9 mg/dL (8.5-10.1); Chloride 100 mmol/L (98-107); Glucose 195 mg/dL (70-100); Sodium 136 mmol/L (136-145); Total Protein 7.7 g/dL (6.4-8.2)
[2018-12-01 16:35] LABS: CEA 42.3 ng/ml
== END 2018-11-29 23:59 | disposition home or self-care (01) ==
LOC: INF 01:41
PROVIDERS: PCP Internal Medicine; Visit Provider Internal Medicine Hematology & Oncology
DX: C15.9 Malignant neoplasm of esophagus, unspecified (principal); Z45.2 Encounter for adjustment and management of vascular access device
CPT/HCPCS: 36415; 36591; 80053; 82378; 85025

== ENCOUNTER 2018-12-27 02:02 | Outpatient (RCR) | payer MEDICARE, MEDICAID, SELFPAY | END 2018-12-30 23:59 | disposition home or self-care (01) | LOC: INF 02:02 | PROVIDERS: PCP Internal Medicine; Visit Provider Internal Medicine Hematology & Oncology | DX: R69 Illness, unspecified (principal) ==

== ENCOUNTER 2019-01-20 02:40 | Outpatient (RCR) | payer MEDICARE, MEDICAID, SELFPAY ==
[2019-01-07 08:15] LABS: Absolute Basophil Count 0.02 k/cumm (0.0-0.2); Absolute Eosinophil Count 0.09 k/cumm (0.0-0.7); Absolute Lymphocyte Count 0.85 k/cumm (1.2-3.4); Absolute Monocyte Count 0.71 k/cumm (0.11-0.7); Absolute Neutrophil Count 2.01 k/cumm (1.2-6.7); Basophils % 0.5; Eosinophils % 2.4; HCT 37.2 % (40.0-50.0); HGB 12.2 g/dL (13.5-17.5); Lymphocytes % 23.1; Mean Corp. HGB Concentration 32.8 g/dL (32.0-36.0); Mean Corpuscular Volume 97.6 fL (80-95); Mean Platelet Volume 9.1 fL (8.0-11.0); Monocytes % 19.3; Neutrophils % 54.7; Platelet Count 199 x1000/uL (130-400); RBC 3.81 m/cumm (4.50-6.00); RBC Distribution Width 14.5 % (11.8-14.1); White Blood Cell Count 3.68 k/cumm (4.4-10.8)
[2019-01-07] MEDS: Heparin 500 UNITS/5 ML SYRINGE (08:33)
[2019-01-07] MEDS: Normal Saline Flush 10 ML SYR IVP (08:34)
[2019-01-07 08:52] LABS: ALT 30 U/L (16-63); AST 32 U/L (15-37); Albumin 3.3 g/dL (3.4-5.0); Alkaline Phosphatase 231 U/L (46-116); Anion Gap 7.8 mmol/L (3-11); BUN 18 mg/dL (7-18); Bilirubin, Total 0.5 mg/dL (0.2-1.0); CO2 28.2 mmol/L (21.0-32.0); CREATININE 0.89 mg/dL (0.70-1.30); Calcium 9.2 mg/dL (8.5-10.1); Chloride 100 mmol/L (98-107); Glucose 259 mg/dL (70-100); Sodium 136 mmol/L (136-145); Total Protein 8.1 g/dL (6.4-8.2)
[2019-01-11 08:09] LABS: CEA 43.1 ng/mL (See Note)
[2019-01-20] MEDS: Heparin 500 UNITS/5 ML SYRINGE IV (12:27)
[2019-01-20] MEDS: Normal Saline Flush 10 ML SYR IVP (12:27)
[2019-01-20 12:29] LABS: Abs Immature Grans 0.01 k/cumm (0.0-0.09); Absolute Basophil Count 0.02 k/cumm (0.0-0.2); Absolute Eosinophil Count 0.07 k/cumm (0.0-0.7); Absolute Lymphocyte Count 0.91 k/cumm (1.2-3.4); Absolute Monocyte Count 0.58 k/cumm (0.11-0.7); Absolute Neutrophil Count 1.73 k/cumm (1.2-6.7); Basophils % 0.6; Eosinophils % 2.1; HGB 11.3 g/dL (13.5-17.5); Immature Grans % 0.3; Lymphocytes % 27.4; Mean Corp. HGB Concentration 32.3 g/dL (32.0-36.0); Mean Corpuscular Hemoglobin 31.5 pg (27.0-33.0); Mean Corpuscular Volume 97.5 fL (80-95); Mean Platelet Volume 8.8 fL (8.0-11.0); Monocytes % 17.5; Neutrophils % 52.1; Platelet Count 156 x1000/uL (130-400); RBC 3.59 m/cumm (4.50-6.00); RBC Distribution Width 14.6 % (11.8-14.1); White Blood Cell Count 3.32 k/cumm (4.4-10.8)
[2019-01-20 12:47] LABS: ALT 30 U/L (16-63); AST 28 U/L (15-37); Albumin 3.1 g/dL (3.4-5.0); Alkaline Phosphatase 236 U/L (46-116); Anion Gap 5.6 mmol/L (3-11); BUN 14 mg/dL (7-18); Bilirubin, Total 0.4 mg/dL (0.2-1.0); CO2 29.4 mmol/L (21.0-32.0); CREATININE 0.87 mg/dL (0.70-1.30); Calcium 8.6 mg/dL (8.5-10.1); Chloride 100 mmol/L (98-107); Glucose 305 mg/dL (74-106); Potassium 4.1 mmol/L (3.5-5.1); Sodium 135 mmol/L (136-145); Total Protein 7.6 g/dL (6.4-8.2)
[2019-01-21 09:36] LABS: CEA 53.1 ng/mL (See Note)
== END 2019-01-29 23:59 | disposition home or self-care (01) ==
LOC: INF 02:40
PROVIDERS: PCP Internal Medicine; Visit Provider Internal Medicine Hematology & Oncology
DX: C15.9 Malignant neoplasm of esophagus, unspecified (principal); Z45.2 Encounter for adjustment and management of vascular access device
CPT/HCPCS: 36591; 80053; 82378; 85025

== ENCOUNTER 2019-02-22 03:42 | Outpatient (RCR) | payer MEDICARE, MEDICAID, SELFPAY | END 2019-03-01 23:59 | disposition home or self-care (01) | LOC: INF 03:42 | PROVIDERS: PCP Internal Medicine; Visit Provider Internal Medicine Hematology & Oncology | DX: R69 Illness, unspecified (principal) ==

== ENCOUNTER 2019-04-01 03:41 | Outpatient (RCR) | payer MEDICARE, MEDICAID, SELFPAY ==
[2019-03-18] MEDS: Heparin 500 UNITS/5 ML SYRINGE (14:30)
[2019-03-18] MEDS: Normal Saline Flush 10 ML SYR 30 ML IVP (14:31)
[2019-03-18 14:43] LABS: Absolute Basophil Count 0.04 k/cumm (0.0-0.2); Absolute Eosinophil Count 0.17 k/cumm (0.0-0.7); Absolute Lymphocyte Count 1.33 k/cumm (1.2-3.4); Absolute Monocyte Count 0.99 k/cumm (0.11-0.7); Absolute Neutrophil Count 3.13 k/cumm (1.2-6.7); Basophils % 0.7; HCT 37.6 % (40.0-50.0); HGB 12.4 g/dL (13.5-17.5); Lymphocytes % 23.5; Mean Corpuscular Hemoglobin 31.7 pg (27.0-33.0); Mean Corpuscular Volume 96.2 fL (80-95); Mean Platelet Volume 9.3 fL (8.0-11.0); Monocytes % 17.5; Neutrophils % 55.3; Platelet Count 186 x1000/uL (130-400); RBC 3.91 m/cumm (4.50-6.00); RBC Distribution Width 13.7 % (11.8-14.1); White Blood Cell Count 5.66 k/cumm (4.4-10.8)
[2019-03-18 15:04] LABS: ALT 33 U/L (16-63); AST 40 U/L (15-37); Albumin 3.3 g/dL (3.4-5.0); Alkaline Phosphatase 310 U/L (46-116); Anion Gap 6.9 mmol/L (3-11); BUN 18 mg/dL (7-18); Bilirubin, Total 0.4 mg/dL (0.2-1.0); CO2 29.1 mmol/L (21.0-32.0); CREATININE 0.87 mg/dL (0.70-1.30); Calcium 8.9 mg/dL (8.5-10.1); Chloride 101 mmol/L (98-107); Glucose 206 mg/dL (74-106); Potassium 4.2 mmol/L (3.5-5.1); Sodium 137 mmol/L (136-145); Total Protein 7.8 g/dL (6.4-8.2)
[2019-03-22 12:32] LABS: CEA 156.8 ng/mL (See Note)
[2019-04-01] MEDS: Normal Saline Flush 10 ML SYR IVP (08:15)
[2019-04-01] MEDS: Heparin 500 UNITS/5 ML SYRINGE IV (08:15)
[2019-04-01 08:36] LABS: Abs Immature Grans 0.01 k/cumm (0.0-0.09); Absolute Basophil Count 0.02 k/cumm (0.0-0.2); Absolute Eosinophil Count 0.07 k/cumm (0.0-0.7); Absolute Monocyte Count 0.63 k/cumm (0.11-0.7); Absolute Neutrophil Count 2.36 k/cumm (1.2-6.7); Basophils % 0.5; Eosinophils % 1.8; HGB 12.2 g/dL (13.5-17.5); Immature Grans % 0.3 %; Lymphocytes % 20.6; Mean Corpuscular Hemoglobin 31.4 pg (27.0-33.0); Mean Corpuscular Volume 95.4 fL (80-95); Monocytes % 16.2; Neutrophils % 60.6; Platelet Count 186 x1000/uL (130-400); RBC 3.88 m/cumm (4.50-6.00); RBC Distribution Width 13.5 % (11.8-14.1); White Blood Cell Count 3.89 k/cumm (4.4-10.8)
[2019-04-01 08:55] LABS: ALT 25 U/L (16-63); AST 30 U/L (15-37); Albumin 3.3 g/dL (3.4-5.0); Alkaline Phosphatase 280 U/L (46-116); Anion Gap 7.8 mmol/L (3-11); BUN 17 mg/dL (7-18); Bilirubin, Total 0.6 mg/dL (0.2-1.0); CO2 28.2 mmol/L (21.0-32.0); CREATININE 0.99 mg/dL (0.70-1.30); Calcium 8.5 mg/dL (8.5-10.1); Chloride 99 mmol/L (98-107); Glucose 290 mg/dL (74-106); Potassium 4.2 mmol/L (3.5-5.1); Sodium 135 mmol/L (136-145); Total Protein 7.4 g/dL (6.4-8.2)
[2019-04-04 13:01] LABS: CEA 174.4 ng/mL (See Note)
== END 2019-04-01 23:59 | disposition home or self-care (01) ==
LOC: INF 03:41
PROVIDERS: PCP Internal Medicine; Visit Provider Internal Medicine Hematology & Oncology
DX: C15.9 Malignant neoplasm of esophagus, unspecified (principal); Z45.2 Encounter for adjustment and management of vascular access device
CPT/HCPCS: 36591; 80053; 82378; 85025

== ENCOUNTER 2019-04-18 03:18 | Outpatient (RCR) | payer MEDICARE, MEDICAID, SELFPAY ==
[2019-04-18] MEDS: Normal Saline Flush 10 ML SYR IVP (10:21)
[2019-04-18 10:34] LABS: Absolute Basophil Count 0.04 k/cumm (0.0-0.2); Absolute Eosinophil Count 0.07 k/cumm (0.0-0.7); Absolute Lymphocyte Count 0.86 k/cumm (1.2-3.4); Absolute Monocyte Count 0.71 k/cumm (0.11-0.7); Absolute Neutrophil Count 2.04 k/cumm (1.2-6.7); Basophils % 1.1; Eosinophils % 1.9; HCT 35.2 % (40.0-50.0); HGB 11.6 g/dL (13.5-17.5); Lymphocytes % 23.1; Mean Corpuscular Hemoglobin 31.9 pg (27.0-33.0); Mean Corpuscular Volume 96.7 fL (80-95); Monocytes % 19.1; Neutrophils % 54.8; Platelet Count 156 x1000/uL (130-400); RBC 3.64 m/cumm (4.50-6.00); RBC Distribution Width 14.6 % (11.8-14.1); White Blood Cell Count 3.72 k/cumm (4.4-10.8)
[2019-04-18 10:53] LABS: ALT 30 U/L (16-63); AST 32 U/L (15-37); Albumin 3.1 g/dL (3.4-5.0); Alkaline Phosphatase 266 U/L (46-116); Anion Gap 7.4 mmol/L (3-11); BUN 14 mg/dL (7-18); Bilirubin, Total 0.5 mg/dL (0.2-1.0); CO2 29.6 mmol/L (21.0-32.0); CREATININE 1.11 mg/dL (0.70-1.30); Calcium 8.3 mg/dL (8.5-10.1); Chloride 102 mmol/L (98-107); Glucose 335 mg/dL (74-106); Potassium 3.8 mmol/L (3.5-5.1); Sodium 139 mmol/L (136-145); Total Protein 7.1 g/dL (6.4-8.2)
== END 2019-04-30 23:59 | disposition home or self-care (01) ==
LOC: INF 03:18
PROVIDERS: PCP Internal Medicine; Visit Provider Internal Medicine Hematology & Oncology
DX: C15.9 Malignant neoplasm of esophagus, unspecified (principal); Z45.2 Encounter for adjustment and management of vascular access device
CPT/HCPCS: 36591; 80053; 82378; 85025

== ENCOUNTER 2019-05-31 04:03 | Outpatient (RCR) | payer MEDICARE, MEDICAID, SELFPAY ==
[2019-05-02 07:43] LABS: Abs Immature Grans 0.03 k/cumm (0.0-0.09); Absolute Eosinophil Count 0.02 k/cumm (0.0-0.7); Absolute Lymphocyte Count 0.55 k/cumm (1.2-3.4); Absolute Monocyte Count 0.48 k/cumm (0.11-0.7); Absolute Neutrophil Count 4.45 k/cumm (1.2-6.7); Eosinophils % 0.4; HCT 37.2 % (40.0-50.0); HGB 12.7 g/dL (13.5-17.5); Immature Grans % 0.5 %; Lymphocytes % 9.9; Mean Corp. HGB Concentration 34.1 g/dL (32.0-36.0); Mean Corpuscular Hemoglobin 32.4 pg (27.0-33.0); Mean Corpuscular Volume 94.9 fL (80-95); Mean Platelet Volume 9.3 fL (8.0-11.0); Monocytes % 8.7; Neutrophils % 80.5; Platelet Count 224 x1000/uL (130-400); RBC 3.92 m/cumm (4.50-6.00); RBC Distribution Width 14.7 % (11.8-14.1); White Blood Cell Count 5.53 k/cumm (4.4-10.8)
[2019-05-02 07:59] LABS: ALT 83 U/L (16-63); AST 70 U/L (15-37); Albumin 3.1 g/dL (3.4-5.0); Alkaline Phosphatase 311 U/L (46-116); Anion Gap 6.4 mmol/L (3-11); BUN 27 mg/dL (7-18); Bilirubin, Total 0.7 mg/dL (0.2-1.0); CO2 29.6 mmol/L (21.0-32.0); CREATININE 1.05 mg/dL (0.70-1.30); Calcium 8.5 mg/dL (8.5-10.1); Chloride 96 mmol/L (98-107); Glucose 432 mg/dL (74-106); Potassium 4.2 mmol/L (3.5-5.1); Sodium 132 mmol/L (136-145)
[2019-05-02] MEDS: Normal Saline Flush 10 ML SYR IVP (08:13)
[2019-05-03 13:08] LABS: CEA 171.8 ng/mL (See Note)
[2019-05-16 09:44] LABS: Abs Immature Grans 0.01 k/cumm (0.0-0.09); Absolute Basophil Count 0.01 k/cumm (0.0-0.2); Absolute Eosinophil Count 0.05 k/cumm (0.0-0.7); Absolute Lymphocyte Count 0.87 k/cumm (1.2-3.4); Absolute Monocyte Count 0.84 k/cumm (0.11-0.7); Absolute Neutrophil Count 3.42 k/cumm (1.2-6.7); Basophils % 0.2; HCT 37.2 % (40.0-50.0); HGB 12.4 g/dL (13.5-17.5); Immature Grans % 0.2 %; Lymphocytes % 16.7; Mean Corp. HGB Concentration 33.3 g/dL (32.0-36.0); Mean Corpuscular Volume 95.9 fL (80-95); Mean Platelet Volume 9.6 fL (8.0-11.0); Monocytes % 16.2; Neutrophils % 65.7; Platelet Count 124 x1000/uL (130-400); RBC 3.88 m/cumm (4.50-6.00); RBC Distribution Width 14.9 % (11.8-14.1)
[2019-05-16] MEDS: Normal Saline Flush 10 ML SYR IVP (09:53)
[2019-05-16 10:11] LABS: ALT 56 U/L (16-63); AST 45 U/L (15-37); Alkaline Phosphatase 311 U/L (46-116); Anion Gap 5.2 mmol/L (3-11); BUN 16 mg/dL (7-18); Bilirubin, Total 0.6 mg/dL (0.2-1.0); CO2 28.8 mmol/L (21.0-32.0); CREATININE 0.92 mg/dL (0.70-1.30); Calcium 8.2 mg/dL (8.5-10.1); Chloride 99 mmol/L (98-107); Glucose 285 mg/dL (74-106); Potassium 4.2 mmol/L (3.5-5.1); Sodium 133 mmol/L (136-145)
[2019-05-31 10:16] LABS: Abs Immature Grans 0.01 k/cumm (0.0-0.09); Absolute Basophil Count 0.01 k/cumm (0.0-0.2); Absolute Eosinophil Count 0.07 k/cumm (0.0-0.7); Absolute Lymphocyte Count 1.02 k/cumm (1.2-3.4); Absolute Neutrophil Count 2.78 k/cumm (1.2-6.7); Basophils % 0.2; Eosinophils % 1.5; HCT 36.1 % (40.0-50.0); HGB 12.2 g/dL (13.5-17.5); Immature Grans % 0.2 %; Lymphocytes % 22.2; Mean Corp. HGB Concentration 33.8 g/dL (32.0-36.0); Mean Corpuscular Hemoglobin 32.4 pg (27.0-33.0); Mean Platelet Volume 9.1 fL (8.0-11.0); Monocytes % 15.3; Neutrophils % 60.6; Platelet Count 201 x1000/uL (130-400); RBC 3.76 m/cumm (4.50-6.00); RBC Distribution Width 15.7 % (11.8-14.1); White Blood Cell Count 4.59 k/cumm (4.4-10.8)
[2019-05-31] MEDS: Normal Saline Flush 10 ML SYR IVP (10:37)
[2019-05-31 10:56] LABS: ALT 37 U/L (16-63); AST 35 U/L (15-37); Albumin 3.1 g/dL (3.4-5.0); Alkaline Phosphatase 260 U/L (46-116); Anion Gap 8.1 mmol/L (3-11); BUN 22 mg/dL (7-18); Bilirubin, Total 0.5 mg/dL (0.2-1.0); CO2 27.9 mmol/L (21.0-32.0); CREATININE 1.11 mg/dL (0.70-1.30); Calcium 8.9 mg/dL (8.5-10.1); Chloride 102 mmol/L (98-107); Glucose 157 mg/dL (74-106); Potassium 4.1 mmol/L (3.5-5.1); Sodium 138 mmol/L (136-145); Total Protein 7.2 g/dL (6.4-8.2)
== END 2019-05-31 23:59 | disposition home or self-care (01) ==
LOC: INF 04:03
PROVIDERS: PCP Internal Medicine; Visit Provider Internal Medicine Hematology & Oncology
DX: C15.9 Malignant neoplasm of esophagus, unspecified (principal); Z45.2 Encounter for adjustment and management of vascular access device
CPT/HCPCS: 36591; 80053; 82378; 85025

== ENCOUNTER 2019-06-27 00:40 | Outpatient (RCR) | payer MEDICARE, MEDICAID, SELFPAY ==
[2019-06-13 09:32] LABS: Abs Immature Grans 0.01 k/cumm (0.0-0.09); Absolute Basophil Count 0.02 k/cumm (0.0-0.2); Absolute Eosinophil Count 0.07 k/cumm (0.0-0.7); Absolute Lymphocyte Count 1.01 k/cumm (1.2-3.4); Absolute Monocyte Count 0.85 k/cumm (0.11-0.7); Absolute Neutrophil Count 2.56 k/cumm (1.2-6.7); Basophils % 0.4; Eosinophils % 1.5; HCT 35.8 % (40.0-50.0); HGB 12.2 g/dL (13.5-17.5); Immature Grans % 0.2 %; Lymphocytes % 22.3; Mean Corp. HGB Concentration 34.1 g/dL (32.0-36.0); Mean Corpuscular Volume 96.8 fL (80-95); Mean Platelet Volume 9.5 fL (8.0-11.0); Monocytes % 18.8; Neutrophils % 56.8; Platelet Count 161 x1000/uL (130-400); RBC Distribution Width 16.1 % (11.8-14.1); White Blood Cell Count 4.52 k/cumm (4.4-10.8)
[2019-06-13] MEDS: Normal Saline Flush 10 ML SYR IVP (09:37)
[2019-06-13 09:52] LABS: ALT 32 U/L (16-63); AST 30 U/L (15-37); Albumin 3.3 g/dL (3.4-5.0); Alkaline Phosphatase 305 U/L (46-116); Anion Gap 5.2 mmol/L (3-11); BUN 18 mg/dL (7-18); Bilirubin, Total 0.6 mg/dL (0.2-1.0); CO2 28.8 mmol/L (21.0-32.0); CREATININE 1.08 mg/dL (0.70-1.30); Calcium 8.8 mg/dL (8.5-10.1); Chloride 98 mmol/L (98-107); Glucose 429 mg/dL (74-106); Potassium 4.4 mmol/L (3.5-5.1); Sodium 132 mmol/L (136-145); Total Protein 7.5 g/dL (6.4-8.2)
[2019-06-15 16:14] LABS: CEA 149.9 ng/mL (See Note)
[2019-06-27] MEDS: Normal Saline Flush 10 ML SYR IVP (09:39)
[2019-06-27 09:44] LABS: Abs Immature Grans 0.01 k/cumm (0.0-0.09); Absolute Basophil Count 0.04 k/cumm (0.0-0.2); Absolute Eosinophil Count 0.14 k/cumm (0.0-0.7); Absolute Lymphocyte Count 1.14 k/cumm (1.2-3.4); Absolute Monocyte Count 1.07 k/cumm (0.11-0.7); Basophils % 0.7; Eosinophils % 2.4; HCT 35.8 % (40.0-50.0); HGB 12.1 g/dL (13.5-17.5); Immature Grans % 0.2 %; Lymphocytes % 19.3; Mean Corp. HGB Concentration 33.8 g/dL (32.0-36.0); Mean Corpuscular Hemoglobin 33.1 pg (27.0-33.0); Mean Corpuscular Volume 97.8 fL (80-95); Mean Platelet Volume 9.7 fL (8.0-11.0); Monocytes % 18.1; Neutrophils % 59.3; Platelet Count 186 x1000/uL (130-400); RBC 3.66 m/cumm (4.50-6.00); RBC Distribution Width 16.5 % (11.8-14.1)
[2019-06-27 10:04] LABS: ALT 31 U/L (16-63); AST 31 U/L (15-37); Albumin 3.3 g/dL (3.4-5.0); Alkaline Phosphatase 240 U/L (46-116); Anion Gap 8.2 mmol/L (3-11); BUN 19 mg/dL (7-18); Bilirubin, Total 0.8 mg/dL (0.2-1.0); CO2 27.8 mmol/L (21.0-32.0); CREATININE 0.94 mg/dL (0.70-1.30); Calcium 8.8 mg/dL (8.5-10.1); Chloride 99 mmol/L (98-107); Glucose 197 mg/dL (74-106); Sodium 135 mmol/L (136-145); Total Protein 7.3 g/dL (6.4-8.2)
[2019-06-28 11:10] LABS: CEA 168.5 ng/mL (See Note)
== END 2019-06-30 23:59 | disposition home or self-care (01) ==
LOC: INF 00:40
PROVIDERS: PCP Internal Medicine; Visit Provider Internal Medicine Hematology & Oncology
DX: C15.9 Malignant neoplasm of esophagus, unspecified (principal); Z45.2 Encounter for adjustment and management of vascular access device
CPT/HCPCS: 36591; 80053; 82378; 85025

== ENCOUNTER 2019-07-27 01:42 | Outpatient (RCR) | payer MEDICARE, MEDICAID, SELFPAY ==
[2019-07-07] MEDS: Heparin 500 UNITS/5 ML SYRINGE IV (09:15)
[2019-07-07] MEDS: Normal Saline Flush 10 ML SYR IVP (09:15)
[2019-07-07 10:05] LABS: Abs Immature Grans 0.02 k/cumm (0.0-0.09); Absolute Basophil Count 0.02 k/cumm (0.0-0.2); Absolute Lymphocyte Count 0.92 k/cumm (1.2-3.4); Absolute Monocyte Count 1.09 k/cumm (0.11-0.7); Absolute Neutrophil Count 2.35 k/cumm (1.2-6.7); Basophils % 0.4; Eosinophils % 2.2; HCT 36.1 % (40.0-50.0); HGB 12.2 g/dL (13.5-17.5); Immature Grans % 0.4 %; Lymphocytes % 20.4; Mean Corp. HGB Concentration 33.8 g/dL (32.0-36.0); Mean Corpuscular Hemoglobin 33.3 pg (27.0-33.0); Mean Corpuscular Volume 98.6 fL (80-95); Mean Platelet Volume 9.4 fL (8.0-11.0); Monocytes % 24.2; Neutrophils % 52.4; Platelet Count 209 x1000/uL (130-400); RBC 3.66 m/cumm (4.50-6.00); RBC Distribution Width 16.6 % (11.8-14.1)
[2019-07-07 10:20] LABS: ALT 40 U/L (16-63); AST 36 U/L (15-37); Albumin 3.3 g/dL (3.4-5.0); Alkaline Phosphatase 271 U/L (46-116); Anion Gap 8.1 mmol/L (3-11); BUN 15 mg/dL (7-18); Bilirubin, Total 0.7 mg/dL (0.2-1.0); CO2 27.9 mmol/L (21.0-32.0); CREATININE 0.94 mg/dL (0.70-1.30); Calcium 9.3 mg/dL (8.5-10.1); Chloride 97 mmol/L (98-107); Glucose 352 mg/dL (74-106); Potassium 4.1 mmol/L (3.5-5.1); Sodium 133 mmol/L (136-145); Total Protein 7.5 g/dL (6.4-8.2)
[2019-07-08 10:47] LABS: CEA 182.7 ng/mL (See Note)
[2019-07-27] MEDS: Normal Saline Flush 10 ML SYR IVP (08:11)
[2019-07-27 08:14] LABS: Abs Immature Grans 0.02 k/cumm (0.0-0.09); Absolute Basophil Count 0.07 k/cumm (0.0-0.2); Absolute Eosinophil Count 0.52 k/cumm (0.0-0.7); Absolute Lymphocyte Count 1.48 k/cumm (1.2-3.4); Absolute Neutrophil Count 3.93 k/cumm (1.2-6.7); Basophils % 0.9; Eosinophils % 6.7; HCT 38.6 % (40.0-50.0); HGB 13.3 g/dL (13.5-17.5); Immature Grans % 0.3 %; Lymphocytes % 19.2; Mean Corp. HGB Concentration 34.5 g/dL (32.0-36.0); Mean Corpuscular Hemoglobin 33.5 pg (27.0-33.0); Mean Corpuscular Volume 97.2 fL (80-95); Mean Platelet Volume 9.4 fL (8.0-11.0); Neutrophils % 50.9; Platelet Count 220 x1000/uL (130-400); RBC 3.97 m/cumm (4.50-6.00); RBC Distribution Width 14.5 % (11.8-14.1); White Blood Cell Count 7.72 k/cumm (4.4-10.8)
[2019-07-27 08:28] LABS: ALT 29 U/L (16-63); AST 39 U/L (15-37); Alkaline Phosphatase 260 U/L (46-116); Anion Gap 8.2 mmol/L (3-11); BUN 14 mg/dL (7-18); CO2 26.8 mmol/L (21.0-32.0); CREATININE 1.19 mg/dL (0.70-1.30); Calcium 8.9 mg/dL (8.5-10.1); Chloride 93 mmol/L (98-107); Estimated GFR 59.92 (mL/min/1.73m2); Glucose 326 mg/dL (74-106); LDH 176 U/L (85-227); Potassium 4.2 mmol/L (3.5-5.1); Sodium 128 mmol/L (136-145); Total Protein 7.6 g/dL (6.4-8.2)
[2019-07-27 08:35] LABS: Diff Comment Agrees w/ Instrument; Polychromasia Present
[2019-07-28 13:05] LABS: CEA 165.9 ng/mL (See Note)
== END 2019-07-31 23:59 | disposition home or self-care (01) ==
LOC: INF 01:42
PROVIDERS: PCP Internal Medicine; Visit Provider Internal Medicine Hematology & Oncology
DX: C15.5 Malignant neoplasm of lower third of esophagus (principal); Z45.2 Encounter for adjustment and management of vascular access device
CPT/HCPCS: 36591; 80053; 86850; 86900; 86901; 82378; 83615; 85025

== ENCOUNTER 2019-08-26 04:26 | Outpatient (RCR) | payer MEDICARE, MEDICAID, SELFPAY ==
[2019-08-26] MEDS: Normal Saline Flush 10 ML SYR IVP (09:03)
[2019-08-26] MEDS: Heparin 500 UNITS/5 ML SYRINGE IV (09:03)
[2019-08-26 09:06] LABS: Abs Immature Grans 0.02 k/cumm (0.0-0.09); Absolute Basophil Count 0.03 k/cumm (0.0-0.2); Absolute Eosinophil Count 0.21 k/cumm (0.0-0.7); Absolute Lymphocyte Count 0.81 k/cumm (1.2-3.4); Absolute Monocyte Count 1.21 k/cumm (0.11-0.7); Basophils % 0.5; Eosinophils % 3.4; HGB 12.2 g/dL (13.5-17.5); Immature Grans % 0.3 %; Lymphocytes % 13.1; Mean Corpuscular Hemoglobin 32.6 pg (27.0-33.0); Mean Corpuscular Volume 98.9 fL (80-95); Mean Platelet Volume 9.7 fL (8.0-11.0); Monocytes % 19.6; Neutrophils % 63.1; Platelet Count 212 x1000/uL (130-400); RBC 3.74 m/cumm (4.50-6.00); RBC Distribution Width 15.6 % (11.8-14.1); White Blood Cell Count 6.18 k/cumm (4.4-10.8)
[2019-08-26 09:30] LABS: ALT 43 U/L (16-63); AST 47 U/L (15-37); Albumin 2.8 g/dL (3.4-5.0); Alkaline Phosphatase 357 U/L (46-116); Anion Gap 8.2 mmol/L (3-11); BUN 21 mg/dL (7-18); Bilirubin, Total 0.8 mg/dL (0.2-1.0); CO2 25.8 mmol/L (21.0-32.0); CREATININE 1.13 mg/dL (0.70-1.30); Calcium 8.7 mg/dL (8.5-10.1); Chloride 98 mmol/L (98-107); Glucose 272 mg/dL (74-106); Potassium 4.3 mmol/L (3.5-5.1); Sodium 132 mmol/L (136-145); Total Protein 7.5 g/dL (6.4-8.2)
[2019-08-29 11:11] LABS: CEA 228.4 ng/mL (See Note)
== END 2019-08-30 23:59 | disposition home or self-care (01) ==
LOC: INF 04:26
PROVIDERS: PCP Internal Medicine; Visit Provider Internal Medicine Hematology & Oncology
DX: C15.5 Malignant neoplasm of lower third of esophagus (principal); Z45.2 Encounter for adjustment and management of vascular access device
CPT/HCPCS: 36591; 80053; 82378; 85025

== ENCOUNTER 2019-09-23 04:15 | Outpatient (RCR) | payer MEDICARE, MEDICAID, SELFPAY ==
[2019-09-09] MEDS: Normal Saline Flush 10 ML SYR IVP (14:08)
[2019-09-09] MEDS: Heparin 500 UNITS/5 ML SYRINGE IV (14:08)
[2019-09-09 14:24] LABS: Abs Immature Grans 0.01 k/cumm (0.0-0.09); Absolute Basophil Count 0.03 k/cumm (0.0-0.2); Absolute Eosinophil Count 0.21 k/cumm (0.0-0.7); Absolute Lymphocyte Count 0.83 k/cumm (1.2-3.4); Absolute Monocyte Count 0.74 k/cumm (0.11-0.7); Absolute Neutrophil Count 2.39 k/cumm (1.2-6.7); Basophils % 0.7; HCT 35.3 % (40.0-50.0); HGB 11.5 g/dL (13.5-17.5); Immature Grans % 0.2 %; Lymphocytes % 19.7; Mean Corp. HGB Concentration 32.6 g/dL (32.0-36.0); Mean Corpuscular Hemoglobin 31.9 pg (27.0-33.0); Mean Corpuscular Volume 98.1 fL (80-95); Mean Platelet Volume 9.5 fL (8.0-11.0); Monocytes % 17.6; Neutrophils % 56.8; Platelet Count 226 x1000/uL (130-400); RBC Distribution Width 15.8 % (11.8-14.1); White Blood Cell Count 4.21 k/cumm (4.4-10.8)
[2019-09-09 14:33] LABS: ALT 41 U/L (16-63); AST 49 U/L (15-37); Alkaline Phosphatase 307 U/L (46-116); Anion Gap 9.2 mmol/L (3-11); BUN 22 mg/dL (7-18); Bilirubin, Total 0.7 mg/dL (0.2-1.0); CO2 26.8 mmol/L (21.0-32.0); CREATININE 1.24 mg/dL (0.70-1.30); Calcium 8.7 mg/dL (8.5-10.1); Chloride 101 mmol/L (98-107); Estimated GFR 57.14 (mL/min/1.73m2); Glucose 218 mg/dL (74-106); Potassium 4.1 mmol/L (3.5-5.1); Sodium 137 mmol/L (136-145); Total Protein 7.3 g/dL (6.4-8.2)
[2019-09-12 13:05] LABS: CEA 334.9 ng/mL (See Note)
[2019-09-23] MEDS: Heparin 500 UNITS/5 ML SYRINGE IV (07:20)
[2019-09-23] MEDS: Normal Saline Flush 10 ML SYR IVP (07:20)
[2019-09-23 07:29] LABS: Abs Immature Grans 0.02 k/cumm (0.0-0.09); Absolute Basophil Count 0.03 k/cumm (0.0-0.2); Absolute Eosinophil Count 0.14 k/cumm (0.0-0.7); Absolute Lymphocyte Count 0.86 k/cumm (1.2-3.4); Absolute Monocyte Count 0.96 k/cumm (0.11-0.7); Absolute Neutrophil Count 2.53 k/cumm (1.2-6.7); Basophils % 0.7; Eosinophils % 3.1; HCT 36.4 % (40.0-50.0); HGB 12.2 g/dL (13.5-17.5); Immature Grans % 0.4 %; Lymphocytes % 18.9; Mean Corp. HGB Concentration 33.5 g/dL (32.0-36.0); Mean Corpuscular Hemoglobin 32.5 pg (27.0-33.0); Mean Corpuscular Volume 97.1 fL (80-95); Mean Platelet Volume 9.6 fL (8.0-11.0); Monocytes % 21.1; Neutrophils % 55.8; Platelet Count 243 x1000/uL (130-400); RBC 3.75 m/cumm (4.50-6.00); White Blood Cell Count 4.54 k/cumm (4.4-10.8)
[2019-09-23 07:41] LABS: ALT 40 U/L (16-63); AST 35 U/L (15-37); Albumin 2.9 g/dL (3.4-5.0); Alkaline Phosphatase 332 U/L (46-116); Anion Gap 7.5 mmol/L (3-11); BUN 11 mg/dL (7-18); Bilirubin, Total 0.9 mg/dL (0.2-1.0); CO2 27.5 mmol/L (21.0-32.0); CREATININE 0.98 mg/dL (0.70-1.30); Calcium 8.8 mg/dL (8.5-10.1); Chloride 102 mmol/L (98-107); Glucose 245 mg/dL (74-106); Potassium 3.8 mmol/L (3.5-5.1); Sodium 137 mmol/L (136-145); Total Protein 7.2 g/dL (6.4-8.2)
[2019-09-26 09:56] LABS: CEA 428.7 ng/mL (See Note)
== END 2019-09-30 23:59 | disposition home or self-care (01) ==
LOC: INF 04:15
PROVIDERS: PCP Internal Medicine; Visit Provider Internal Medicine Hematology & Oncology
DX: C15.5 Malignant neoplasm of lower third of esophagus (principal); Z45.2 Encounter for adjustment and management of vascular access device
CPT/HCPCS: 36591; 80053; 82378; 85025

== ENCOUNTER 2019-10-14 05:20 | Outpatient (RCR) | payer MEDICARE, MEDICAID, SELFPAY ==
[2019-10-07] MEDS: Normal Saline Flush 10 ML SYR IVP (12:15)
[2019-10-07] MEDS: Heparin 500 UNITS/5 ML SYRINGE IV (12:15)
[2019-10-07 12:43] LABS: Abs Immature Grans 0.01 10^3/uL (0.0-0.06); Absolute Basophil Count 0.04 10^3/uL (0.0-0.2); Absolute Eosinophil Count 0.16 10^3/uL (0.0-0.7); Absolute Lymphocyte Count 0.79 10^3/uL (1.2-3.4); Absolute Monocyte Count 0.85 10^3/uL (0.1-0.8); Basophils % 0.9; Eosinophils % 3.8; HCT 33.8 % (40.0-50.0); HGB 11.2 g/dL (13.5-17.5); Immature Grans % 0.2; Lymphocytes % 18.6; MCH 32.1 pg (27.0-33.0); MCHC 33.1 % (32.0-36.0); MCV 96.8 fL (80-95); MPV 9.9 fL (8.0-11.0); Neutrophils % 56.5; Nucleated RBC 0 %; Platelet Count 225 10^3/uL (130-400); RBC 3.49 10^6/uL (4.36-5.78); RDW 15.4 % (11.8-14.1); RDW-SD 54.3 fL; WBC 4.24 10^3/uL (4.4-10.8)
[2019-10-07 12:56] LABS: ALT 36 U/L (16-63); AST 32 U/L (15-37); Albumin 2.8 g/dL (3.4-5.0); Alkaline Phosphatase 335 U/L (46-116); Anion Gap 7.6 mmol/L (3-11); BUN 16 mg/dL (7-18); Bilirubin, Total 0.5 mg/dL (0.2-1.0); CO2 27.4 mmol/L (21.0-32.0); CREATININE 1.03 mg/dL (0.70-1.30); Calcium 8.9 mg/dL (8.5-10.1); Chloride 102 mmol/L (98-107); Glucose 227 mg/dL (74-106); Potassium 4.1 mmol/L (3.5-5.1); Sodium 137 mmol/L (136-145); Total Protein 6.9 g/dL (6.4-8.2)
[2019-10-10 10:27] LABS: CEA 549.6 ng/mL (See Note)
== END 2019-10-31 23:59 | disposition home or self-care (01) ==
LOC: INF 05:20
PROVIDERS: PCP Internal Medicine; Visit Provider Internal Medicine Hematology & Oncology
DX: C15.5 Malignant neoplasm of lower third of esophagus (principal); Z45.2 Encounter for adjustment and management of vascular access device
CPT/HCPCS: 36591; 80053; 82378; 85025

== ENCOUNTER 2019-11-04 05:07 | Outpatient (RCR) | payer MEDICARE, MEDICAID, SELFPAY | END 2019-11-30 23:59 | disposition home or self-care (01) | LOC: INF 05:07 | PROVIDERS: PCP Internal Medicine; Visit Provider Internal Medicine Hematology & Oncology | DX: Z53.9 Procedure and treatment not carried out, unspecified reason (principal) ==